=== PATIENT | female | born 1955 | race Caucasian/White ===

== ENCOUNTER → 2018-06-12 | Outpatient (CLI) | payer BC | LOC: MC.RAD 15:24 | DX: Z12.31 Encounter for screening mammogram for malignant neoplasm of breast (principal); N63.10 Unspecified lump in the right breast, unspecified quadrant; N63.20 Unspecified lump in the left breast, unspecified quadrant ==

== ENCOUNTER → 2018-06-20 | Outpatient (CLI) | payer BC | LOC: MC.RAD 13:49 | DX: N63.10 Unspecified lump in the right breast, unspecified quadrant (principal) | CPT/HCPCS: G0279 ==

== ENCOUNTER → 2019-01-07 | Outpatient (CLI) | payer MEDICARE, BC | LOC: MC.RAD 08:27 | DX: R92.8 Other abnormal and inconclusive findings on diagnostic imaging of breast (principal) | CPT/HCPCS: G0279 ==

== ENCOUNTER 2020-04-27 06:21 | Observation (INO) | payer MEDICARE, BC ==
[~2020-04-27] VITALS: Ht 157.5 cm; Wt 81.8 kg
[2020-04-27 07:10] LABS: BASO % 0.3 % (0.0-2.0); EOS % 0.3 % (0-4.0); GRAN # 10.1 (1.4-6.5); GRAN % 87.7 % (42.2-75.2); HEMATOCRIT 40.5 % (37.0-47.0); HEMOGLOBIN 13.4 g/dl (12.5-16.0); LYMPH # 0.9 (1.2-3.4); LYMPH % 7.8 % (20.0-51.0); MEAN CELL VOLUME 80 fl (80.0-100.0); MEAN CORPUSCULAR HEMOGLOBIN 27 pg (27.0-31.0); MEAN CORPUSCULAR HGB CONC 33 g/dl (33.0-37.0); MEAN PLATELET VOLUME 9.8 fl (7.4-10.4); MONO # 0.4 (0.1-0.6); MONO % 3.7 % (1.7-9.3); PLATELET COUNT 236 K/mm3 (130-400); RED BLOOD COUNT 5.05 M/mm3 (4.10-5.30); REDCELL DISTRIBUTION WIDTH-CV 13.2 % (11.5-14.5)
[2020-04-27 07:28] LABS: ALBUMIN 4.3 gm/dL (3.5-5.0); CALCIUM 9.2 mg/dL (8.4-10.2); CREATININE, serum 1.04 (0.52-1.25); TOTAL PROTEIN 7.7 gm/dL (6.4-8.2)
[2020-04-27 08:13] LABS: MUCOUS Present /lpf; PH 6 (5-8); SQUAMOUS EPITHELIAL 0-2 /hpf; URINE APPEARANCE Clear; URINE BACTERIA None Seen /hpf; URINE BILIRUBIN Negative (NEGATIVE); URINE BLOOD Negative (NEGATIVE); URINE COLOR Yellow; URINE GLUCOSE Negative (NEGATIVE); URINE KETONE Negative (NEGATIVE); URINE LEUKOCYTE ESTERASE Negative (NEGATIVE); URINE NITRATE Negative (NEGATIVE); URINE PROTEIN(semi-quant) 2+ (NEGATIVE); URINE UROBILINOGEN Negative (NEGATIVE); URINE WBC 0-2 /hpf
[2020-04-27 08:29] LABS: MAGNESIUM 2.1 mg/dL (1.6-2.3)
[2020-04-27 08:31] LABS: COLLECTION METHOD CLEAN CATCH
[2020-04-27] MEDS ORDERED: HYZAAR 25 MG-101 TAB PO (08:38)
[2020-04-27] MEDS ORDERED: ALDACTONE50 MG PO ×2 (08:39→08:41)
[2020-04-27] MEDS ORDERED: ZOCOR 20MG20 MG PO (08:41)
[2020-04-27] MEDS ORDERED: ASPIRIN 81M81 MG/TA2 PO (08:42)
[2020-04-27] MEDS ORDERED: CELEBREX 200MG200 MG PO (08:43)
[2020-04-27] MEDS ORDERED: NEXIUM 20MG20 MG PO (08:43)
[2020-04-27 08:44] LABS: TROPONIN-I < 0.012 ng/mL (0.000-0.035)
[2020-04-27] MEDS ORDERED: NORVASC 5MG5 MG/TAB PO (08:44)
[2020-04-27 09:36] VITALS: BP 139/90; PULSE 75; TEMP 97.9
[2020-04-27] MEDS ORDERED: MULTI-VITAMIN W1 TA1 PO (09:45)
[2020-04-27] MEDS ORDERED: MAGNESIUM500 MG PO (09:45)
[2020-04-27] MEDS ORDERED: ZYRTEC5 MG PO (09:46)
[2020-04-27 10:57] VITALS: BP 138/78; PULSE 69; TEMP 98.1
--- NOTE | 2020-04-27 11:00 | NUR ---
Patient admitted from the Er to room 322. called & made aware. All admission paperwork completed. Patient alert & oriented. Only complaints of "acid" stomach. Patient was up to the bathroom voided, steady on her feet. She brushed her teeth. Will monitor.
[2020-04-27 12:00] VITALS: BP 142/77; PULSE 70; TEMP 97.7
--- NOTE | 2020-04-27 14:30 | NUR ---
notifed of patient epidose of emesis. Orders obtained. Patient medicated with zofran & protonix for complains of "acid". Patient also started on IV k+ replacement per orders. SHe will remains NPO.
[2020-04-27 15:25] VITALS: BP 135/78; PULSE 66; TEMP 98.2
--- NOTE | 2020-04-27 16:45 | NUR ---
rounded. Consent obtained. Feeling a little better, Denies the need for pain medication
--- NOTE | 2020-04-27 19:39 | NUR ---
Patient resting in bed. Continue with potassium protocol. Melissa to resume cares.
[2020-04-27 20:17] VITALS: BP 138/80; PULSE 69; TEMP 98.4
[2020-04-27 23:49] VITALS: BP 121/66; PULSE 72; TEMP 98.4
[2020-04-28] VITALS (10 sets, daily range): BP systolic 106–126; BP diastolic 58–73; PULSE 70–92; TEMP 97.7–98.6
[2020-04-28 03:38] LABS: CALCIUM 8.7 mg/dL (8.4-10.2); CREATININE, serum 1.07 (0.52-1.25); POTASSIUM 3.5 mmol/L (3.4-5.0)
--- NOTE | 2020-04-28 06:22 | NUR ---
PATIENT BRUSHED HER TEETH, SCRUBBED HERSELF OFF, CHANGED INTO A NEW GOWN, WENT TO THE BATHROOM, AND REMOVED ALL HER JEWLERY. HUNG LR ON GRAVITY TUBING. PATIENT READY TO GO DOWN FOR SURGERY. CONSENT IS ON CHART.
--- NOTE | 2020-04-28 06:50 | NUR ---
Lying in bed with eyes open. Alert and oriented x4. Denies pain. Patient says that she is ready to have procedure done. Denies needs at this time.
--- NOTE | 2020-04-28 07:33 | NUR ---
Patient to surgery via bed at this time.
--- NOTE | 2020-04-28 09:33 | NUR ---
Patient to room via bed from PACU. Patient is alert and oriented x4, drowsy. Rates pain in abd 4/10, continues to have a little bit of nausea. Will provide ice water for patient to sip on. Lap sites x3 to abd with bandaids all intact, no discharge noted. Patient denies additional needs at this time.
--- NOTE | 2020-04-28 10:09 | NUR ---
Resting in bed with eyes closed. Respirations even and unlabored. NO signs or symptoms of discomfort noted at this time.
--- NOTE | 2020-04-28 10:40 | NUR ---
Patient having increasing pain. Will administer pain medication as prescribed. Will provide orange jello per patient request. Denies additional needs.
--- NOTE | 2020-04-28 11:11 | NUR ---
First visit from the cutter aluminum sheet. No needs right now.
--- NOTE | 2020-04-28 11:21 | NUR ---
Lying in bed on right side. Says that the pain pill is working and is helping to alleviate pain. Denies additional needs at this time.
--- NOTE | 2020-04-28 11:26 | NUR ---
ARIEL met with the patient to discuss discharge plan. The patient lives in [place] with her , Antonette (ph#[phone]). She reports independence with ADLs and does not have any DME. The patient's PCP is Dr. Braulio Nguyễn and she receives her medications from [facility]. She reports no difficulties obtaining her meds. The patient does not have a DPOA-HC completed, but she states that her and her are working on one. The patient plans to return home with her upon discharge. No additional needs at this time.
--- NOTE | 2020-04-28 11:42 | NUR ---
Sitting up in bed with eyes open watching TV. Rates pain 2/10, feels like pain medication helped. Will assist patient in ordering cheese quesadilla and Sprite for lunch. Patient asks if her spouse should come this way at this time. Explain that Dr. Benson will come back to see her this afternoon and then we will go from there if he will discharge her or not. Patient says that she will tell her spouse to wait until after that visit with Dr. Benson. Patient denies additional needs at this time.
--- NOTE | 2020-04-28 13:05 | NUR ---
Sitting up in bed eating lunch. Pain good at this time, denies nausea. Patient denies need to void at this time. IV fluids dc'd. Patient denies additional needs.
--- NOTE | 2020-04-28 13:42 | NUR ---
Patient ambulating in halls. Gait steady.
--- NOTE | 2020-04-28 16:40 | NUR ---
Sitting up in bed watching TV. Minimal pain in abd at this time. Declines need for pain medication. Patient says she is just waiting on Dr. Benson to come in and hopefully let her go home. Patient denies needs at this time.
[2020-04-28] MEDS ORDERED: K-DUR 10 MEQ T10 MEQ PO (16:53)
[2020-04-28] MEDS ORDERED: NORCO 325 MG-51 TAB PO (16:57)
--- NOTE | 2020-04-28 17:18 | NUR ---
Review all discharge instructions with the patient. Denies questions and signs discharge paperwork. Discharge packet provided to the patient. Patient shivani jon getting dressed at this time and her spouse is at the ER entrance to pick her up.
--- NOTE | 2020-04-28 17:33 | NUR ---
Patient assisted out to POV with all belongings by MITA Queen.
== END 2020-04-28 17:34 | disposition home or self-care (01) ==
LOC: COL.ER 06:21 → SURG 08:49
PROVIDERS: Emergency Medicine; Nurse Anesthetist, Certified Registered; ADMIT Surgery
DX: K80.12 Calculus of gallbladder with acute and chronic cholecystitis without obstruction (principal); C82.03 Follicular lymphoma grade I, intra-abdominal lymph nodes; I10 Essential (primary) hypertension; E78.5 Hyperlipidemia, unspecified; Z79.82 Long term (current) use of aspirin
CPT/HCPCS: C9113; J0690; J0696; J1100; J1170; J1885; J2310; J2405; J2550; J2704; J3480; J7120; Q9967

== ENCOUNTER → 2021-07-02 | Outpatient (CLI) | payer MEDICARE, BC ==
[~2021-07-02] MED LIST: ALDACTONE50 MG PO; ASPIRIN 81M81 MG/TA2 PO; CELEBREX 200MG200 MG PO; HYZAAR 25 MG-101 TAB PO; K-DUR 10 MEQ T10 MEQ PO; MAGNESIUM500 MG PO; MULTI-VITAMIN W1 TA1 PO; NEXIUM 20MG20 MG PO; NORCO 325 MG-51 TAB PO; NORVASC 5MG5 MG/TAB PO; ZOCOR 20MG20 MG PO; ZYRTEC5 MG PO
== END ==
LOC: MC.RAD 07:00
DX: N60.11 Diffuse cystic mastopathy of right breast (principal)